=== PATIENT | male | born 1975 | race Caucasian/White ===

== ENCOUNTER 2023-12-19 08:21 | Emergency (ER) | payer OTHER ==
[2023-12-19] MEDS: SODIUM CHLORIDE 500 ML IV STA (09:12)
[2023-12-19] MEDS: SODIUM CHLORIDE 1,000 ML IV STA (09:49)
[2023-12-19] MEDS: ACETAMINOPHEN 1000 MG/100 ML BAG IVPB ONE (09:49)
[2023-12-19 09:54] VITALS: TEMP 98.5; BMI 22.3
[2023-12-19 10:06] LABS: BASO % 0.4 % (0-2.0); EOS % 1.5 % (0-4.5); HEMATOCRIT 33.7 % (35.4-49); HEMOGLOBIN 11.5 GM/dL (11.7-16.9); LYMPH % 13.2 % (8-40); MCH 32.8 pg (25.7-33.7); MCHC 34.2 g/dl (32.0-35.9); MEAN CELL VOLUME 96.1 fl (80-96); MEAN PLT VOLUME 6.3 fl (7.5-11.1); MONO % 7.4 % (3.8-10.2); NEUT % 77.5 % (42.8-82.8); PLATELET COUNT 425 10^3/uL (134-434); RBC 3.51 M/mm3 (4.00-5.60)
[2023-12-19 10:10] LABS: POTASSIUM 4.8 mmol/L (3.5-5.1)
[2023-12-19 10:12] LABS: BLOOD UREA NITROGEN 11.7 mg/dL (7-18); CALCIUM 8.7 mg/dL (8.5-10.1)
[2023-12-19 10:16] LABS: CREATININE 0.7 mg/dL (0.55-1.3)
[2023-12-19 10:17] LABS: BILIRUBIN,TOTAL 0.2 mg/dL (0.2-1); TOT PROT 6.9 g/dl (6.4-8.2)
[2023-12-19 11:28] VITALS: BP 98/67; PULSE 72; RESP 12
== END 2023-12-19 11:45 | disposition home or self-care (01) ==
LOC: JER 08:21
PROC: 3E033NZ Introduction of Analgesics, Hypnotics, Sedatives into Peripheral Vein, Percutaneous Approach (ICD-10-PCS; principal; 2023-12-19)
PROC: 3E0337Z Introduction of Electrolytic and Water Balance Substance into Peripheral Vein, Percutaneous Approach (ICD-10-PCS; 2023-12-19)
DX: R55 Syncope and collapse (principal); T40.3X5A Adverse effect of methadone, initial encounter
CPT/HCPCS: 36415; 71045-TC-FY; 80053; 84484; 85025; 93005; 93010; 99285-25; J0131